=== PATIENT | female | born 1990 | race Caucasian/White ===

== ENCOUNTER 2016-10-31 00:23 | Emergency (ER) | payer OTHER | END 2016-10-31 05:54 | disposition home or self-care (01) | LOC: CED 00:23 → EDBD 00:23 → CED 01:22 | DX: L50.0 Allergic urticaria (principal); R22.1 Localized swelling, mass and lump, neck; F17.200 Nicotine dependence, unspecified, uncomplicated; Z98.890 Other specified postprocedural states | CPT/HCPCS: 96361; 96374; 96375; 99283; J0171; J1200; J2930 ==